=== PATIENT | female | born 1990 | race Two or more races ===

== ENCOUNTER 2019-02-08 06:31 | Inpatient (IN) | payer OTHER ==
[~2019-02-08] VITALS: Ht 162.6 cm; Wt 73.9 kg
[2019-02-08 06:38] VITALS: Ht 162.6 cm; Wt 73.9 kg
[2019-02-08 07:31] LABS: CALCIUM 9.7 mg/dL (8.5-10.1); CARBON DIOXIDE 22.2 mmol/L (21-32); CHLORIDE SERUM 98 mmol/L (98-107); CREATININE SERUM 0.8 mg/dL (0.6-1.0); GFR1 > 60 mL/min; GLUCOSE SERUM 102 mg/dL (74-106); POTASSIUM SERUM 3.3 mmol/L (3.5-5.1); SODIUM SERUM 136 mmol/L (136-145)
[2019-02-08 07:34] LABS: BASOPHIL % 0.4 % (0-2); PLATELET COUNT 165 x10^3mcL (130-400); RED CELL DISTRIBUTION WIDTH 12.6 % (11.5-14.5)
[2019-02-08 07:36] LABS: ALBUMIN 4.4 g/dL (3.4-5.0); ALKALINE PHOSPHATASE 84 U/L (46-116); ALT/SGPT 26 U/L (14-59); AST/SGOT 29 U/L (15-37); BILIRUBIN TOTAL 0.7 mg/dL (0.20-1.00); LIPASE 88 IU/L (73-393); TOTAL PROTEIN, SERUM 8.2 g/dL (6.4-8.2)
[2019-02-08 12:26] VITALS: BP 112/74
[2019-02-08 16:58] VITALS: BP 107/68
[2019-02-08 17:33] VITALS: BP 96/55
[2019-02-08 18:00] VITALS: BP 96/55
[2019-02-08 18:05] VITALS: BP 96/55
[2019-02-08] MEDS ORDERED: TYLENOL WITH CO1 TA2 PO (18:08)
== END 2019-02-08 18:42 | disposition home or self-care (01) | DRG 419 ==
LOC: ED 06:31 → MU 11:24
PROVIDERS: Emergency Medicine; Surgery; ADMIT Internal Medicine Pulmonary Disease
PROC: 0FT44ZZ Resection of Gallbladder, Percutaneous Endoscopic Approach (ICD-10-PCS; principal; 2019-02-08 13:30)
DX: K80.00 Calculus of gallbladder with acute cholecystitis without obstruction (principal)
CPT/HCPCS: J0330; J0694; J1170; J1885; J1956; J2405; J2704; J2710; J3010; J3490; J7030; J7042; J7120; Q0092

== ENCOUNTER 2020-03-09 08:36 | Inpatient (IN) | payer OTHER ==
[~2020-03-09] VITALS: Ht 162.6 cm; Wt 81.2 kg
[~2020-03-09 08:36] MED LIST: TYLENOL WITH CO1 TA2 PO
[2020-03-09 08:52] VITALS: Ht 162.6 cm; Wt 81.2 kg
[2020-03-09 09:24] LABS: microscopic required? NO
[2020-03-09 09:39] LABS: CALCIUM 8.9 mg/dL (8.5-10.1); CARBON DIOXIDE 27.5 mmol/L (21-32); CHLORIDE SERUM 101 mmol/L (98-107); CREATININE SERUM 0.8 mg/dL (0.6-1.0); GFR1 > 60 mL/min; GLUCOSE SERUM 90 mg/dL (74-106); POTASSIUM SERUM 3.8 mmol/L (3.5-5.1); SODIUM SERUM 136 mmol/L (136-145)
[2020-03-09 09:43] LABS: ALBUMIN 4.1 g/dL (3.4-5.0); ALKALINE PHOSPHATASE 88 U/L (46-116); ALT/SGPT 39 U/L (14-59); AST/SGOT 18 U/L (15-37); BILIRUBIN TOTAL 0.7 mg/dL (0.20-1.00); LIPASE 69 IU/L (73-393); TOTAL PROTEIN, SERUM 7.7 g/dL (6.4-8.2)
[2020-03-09] MEDS ORDERED: SPIRONOLACTONE100 MG PO (10:26)
[2020-03-09 10:42] LABS: PLATELET COUNT 129 x10^3mcL (130-400)
[2020-03-09 10:43] LABS: BASOPHIL % 0.2 % (0-2)
[2020-03-09 11:14] LABS: UA SPECIFIC GRAVITY 1.015 (1.005-1.035); urine erythrocyte NEGATIVE (NEGATIVE)
[2020-03-09 13:23] VITALS: BP 103/66
[2020-03-09 17:13] VITALS: BP 129/86
[2020-03-09 21:05] VITALS: BP 104/60
[2020-03-10 05:29] VITALS: BP 97/61
[2020-03-10 06:53] LABS: PLATELET COUNT 144 x10^3mcL (130-400); RED CELL DISTRIBUTION WIDTH 12.8 % (11.5-14.5)
[2020-03-10 07:08] LABS: BASOPHIL % 0 % (0-2); CALCIUM 9.5 mg/dL (8.5-10.1); CARBON DIOXIDE 27.4 mmol/L (21-32); CHLORIDE SERUM 101 mmol/L (98-107); CREATININE SERUM 0.6 mg/dL (0.6-1.0); GFR1 > 60 mL/min; GLUCOSE SERUM 123 mg/dL (74-106); POTASSIUM SERUM 4.1 mmol/L (3.5-5.1); SODIUM SERUM 137 mmol/L (136-145)
[2020-03-10 08:46] VITALS: BP 95/62
[2020-03-10 12:16] VITALS: BP 95/61
[2020-03-10 14:49] VITALS: BP 95/61
[2020-03-10 17:27] VITALS: BP 106/68
== END 2020-03-10 18:42 | disposition home or self-care (01) | DRG 340 ==
LOC: ED 08:36 → EDBEDREQ 11:13 → MU 11:13
PROVIDERS: Emergency Medicine; Surgery; ADMIT Internal Medicine Pulmonary Disease; ATTEND Internal Medicine Pulmonary Disease
PROC: 0DTJ0ZZ Resection of Appendix, Open Approach (ICD-10-PCS; principal; 2020-03-09 15:30)
DX: K35.32 Acute appendicitis with perforation, localized peritonitis, and gangrene, without abscess (principal); Z88.1 Allergy status to other antibiotic agents; Z90.49 Acquired absence of other specified parts of digestive tract; Z83.3 Family history of diabetes mellitus
CPT/HCPCS: G0378; J0690; J1170; J1956; J2405; J2550; J3010; J3490